=== PATIENT | male | born 1945 | race Caucasian/White ===

== ENCOUNTER 2016-10-01 18:30 | Inpatient (IN) | payer OTHER ==
[~2016-10-01] VITALS: Ht 170.2 cm; Wt 63.5 kg
[~2016-10-01 18:30] MED LIST: ATENPOW10; FENOFIBRATE; GLIPPOW9; LISIPOW; PAROXETINE; [UNRECOGNIZED DRUG - OTHER]
[2016-10-01 19:33] LABS: Albumin 3.1 g/dL (3.4-5.0); BUN/Creatinine Ratio 7.2; Basophils # (auto) 0 uL; Basophils % (auto) 0.2 % (0.0-2.0); Calcium 8.5 mg/dL (8.5-10.1); DEFINITIVE VIEW TRANSMISSION; Eosinophils # (auto) 0.1 uL; Eosinophils % (auto) 0.9 % (0.0-7.0); Hemoglobin 11.8 g/dL (13.5-17.5); Lymphocytes # (auto) 0.9 uL; Lymphocytes % (auto) 9.4 % (10.0-50.0); Mean Corpuscular Hemoglobin 34.2 pg (28.0-32.0); Mean Corpuscular Hgb Conc. 32.9 g/dL (32.0-36.0); Mean Platelet Volume 7.7 fL (7.4-10.4); Monocytes # (auto) 0.2 uL; Monocytes % (auto) 2.4 % (0.0-12.0); Neutrophils # (auto) 8.2 uL; Neutrophils % (auto) 87.1 % (37.0-80.0); Platelet Count (auto) 401 10^3/uL (140-450); Potassium 4.4 mmol/L (3.5-5.1); Red Cell Distribution Width 16.9 % (11.6-16.0); White Blood Cell 9.4 10^3/uL (4.4-10.8)
[2016-10-01 19:38] LABS: Bilirubin, Total 0.2 mg/dL (0.2-1.0); Total Protein 7.6 g/dL (6.4-8.2)
[2016-10-01] MEDS ORDERED: SODIUM CHLORIDE 0.9% 1,000 ML IV ONE (21:30)
[2016-10-01] MEDS ORDERED: ASPirin 81 mg TAB PO ONE (21:30)
[2016-10-02] MEDS ORDERED: ONDANSETRON HCL 4 MG/2 ML VIAL IV PRN (01:00)
[2016-10-02] MEDS ORDERED: NITROGLYCERIN 0.4 MG SL TAB SL PRN (01:00)
[2016-10-02] MEDS ORDERED: HYDROcodone-ACET 5/325MG TAB PO PRN (01:00)
[2016-10-02] MEDS ORDERED: METOPROLOL TARTRATE 50 MG TAB PO ONE (01:00)
[2016-10-02] MEDS ORDERED: MORPHINE SULF INJ 2 MG/ML SYRINGE 1ML IV PRN (01:00)
[2016-10-02] MEDS ORDERED: DEXTROSE (50%) 50ML SYRG IV PRN (01:00)
[2016-10-02] MEDS ORDERED: ACETAMINOPHEN 325 MG TAB PO PRN (01:00)
[2016-10-02] MEDS ORDERED: cloNIDine HCL 0.1 MG TAB PO ONE (02:00)
[2016-10-02 02:25] VITALS: BP 180/100
[2016-10-02 05:00] VITALS: BP 166/99
[2016-10-02] MEDS: InsuLIN REG 1unit/0.01ml Soln (100units/ml) SC SCH ×3 (06:00→18:38)
[2016-10-02] MEDS: ACCU-CHEK COMFORT CURVE STRIP VI SCH ×3 (06:10→18:00)
[2016-10-02 08:00] VITALS: BP 159/96
[2016-10-02 09:00] VITALS: BP 159/96
[2016-10-02] MEDS ORDERED: CLOPIDOGREL BISULFATE 75 MG TAB PO SCH (10:00)
[2016-10-02] MEDS ORDERED: METOPROLOL TARTRATE 50 MG TAB PO SCH (10:00)
[2016-10-02] MEDS ORDERED: ENOXAPARIN SOD 30 MG/0.3 ML SYRINGE SC SCH (10:00)
[2016-10-02] MEDS ORDERED: FAMOTIDINE 20 MG TAB PO SCH ×2 (10:00)
[2016-10-02] MEDS ORDERED: amLODIPine BESYLATE 5 MG TAB PO SCH (10:00)
[2016-10-02] MEDS ORDERED: ISOSORBIDE MONONITRATE 60 MG TAB PO SCH (10:00)
[2016-10-02] MEDS ORDERED: ASPirin 81 mg TAB PO SCH (10:00)
[2016-10-02 13:00] VITALS: BP 156/97
[2016-10-02 14:36] LABS: Basophils # (auto) 0 uL; DEFINITIVE VIEW TRANSMISSION; Eosinophils # (auto) 0 uL; Eosinophils % (auto) 0.3 % (0.0-7.0); Hemoglobin 10.9 g/dL (13.5-17.5)
[2016-10-02 14:46] LABS: Basophils % (auto) 0.3 % (0.0-2.0); Hematocrit 32.5 % (41.0-53.0); Lymphocytes # (auto) 1.3 uL; Lymphocytes % (auto) 13.6 % (10.0-50.0); Mean Corpuscular Hemoglobin 34.3 pg (28.0-32.0); Mean Corpuscular Hgb Conc. 33.4 g/dL (32.0-36.0); Mean Corpuscular Volume 102.8 fL (80.0-100.0); Mean Platelet Volume 7.4 fL (7.4-10.4); Monocytes # (auto) 0.7 uL; Monocytes % (auto) 7.6 % (0.0-12.0); Neutrophils # (auto) 7.5 uL; Neutrophils % (auto) 78.2 % (37.0-80.0); Platelet Count (auto) 403 10^3/uL (140-450); Red Cell Distribution Width 16.7 % (11.6-16.0); White Blood Cell 9.6 10^3/uL (4.4-10.8)
[2016-10-02 15:26] LABS: BUN/Creatinine Ratio 7.8; Calcium 8.5 mg/dL (8.5-10.1); Potassium 3.9 mmol/L (3.5-5.1)
[2016-10-02] MEDS ORDERED: LORazepam 2MG/ML-1ML VIAL IV PRN (17:00)
[2016-10-02 17:12] VITALS: BP 134/84
== END 2016-10-02 22:35 | disposition short-term general hospital (02) | DRG 70 ==
LOC: EDUNIT# 18:30 → EDBD 18:30 → ER 18:32 → TELE 18:33 → TELE-CENTR 10-02 02:23
PROVIDERS: ADMIT Nurse Practitioner; ATTEND Internal Medicine
DX: G93.41 Metabolic encephalopathy (principal); N18.6 End stage renal disease; I12.0 Hypertensive chronic kidney disease with stage 5 chronic kidney disease or end stage renal disease; E87.2 Acidosis; Z99.2 Dependence on renal dialysis; I25.10 Atherosclerotic heart disease of native coronary artery without angina pectoris; E78.5 Hyperlipidemia, unspecified; E11.22 Type 2 diabetes mellitus with diabetic chronic kidney disease; D63.8 Anemia in other chronic diseases classified elsewhere; Z95.1 Presence of aortocoronary bypass graft
CPT/HCPCS: 36415; 70450; 71010; 80048; 80053; 82962; 84484; 85025; 93005; 94761; 96374; J1815; J2405

== ENCOUNTER 2017-11-04 20:04 | Emergency (ER) | payer OTHER ==
[~2017-11-04] VITALS: Ht 162.6 cm; Wt 68.0 kg
[2017-11-04 20:10] VITALS: BP 164/87
[2017-11-04 21:11] LABS: Basophils # (auto) 0.1 uL; Hemoglobin 10.2 g/dL (13.5-17.5); Neutrophils # (auto) 6.1 uL
[2017-11-04 21:12] LABS: Eosinophils # (auto) 0.4 uL; Eosinophils % (auto) 3.9 % (0.0-7.0); Hematocrit 30.9 % (41.0-53.0); Lymphocytes # (auto) 1.6 uL; Lymphocytes % (auto) 17.1 % (10.0-50.0); Mean Corpuscular Hemoglobin 36.6 pg (28.0-32.0); Mean Corpuscular Hgb Conc. 32.9 g/dL (32.0-36.0); Mean Corpuscular Volume 111.2 fL (80.0-100.0); Monocytes % (auto) 10.9 % (0.0-12.0); Neutrophils % (auto) 67.1 % (37.0-80.0); Platelet Count (auto) 366 10^3/uL (140-450); Red Blood Cells 2.78 10^6/uL (4.5-5.90); Red Cell Distribution Width 14.7 % (11.8-14.3); White Blood Cell 9.1 10^3/uL (4.4-10.8)
[2017-11-04 21:13] LABS: Albumin 2.3 g/dL (3.4-5.0); Calcium 8.7 mg/dL (8.5-10.1); Magnesium 2.1 mg/dL (1.6-2.6); Potassium 4.9 mmol/L (3.5-5.1)
[2017-11-04 21:20] LABS: Bilirubin, Total 0.3 mg/dL (0.2-1.0); Total Protein 6.3 g/dL (6.4-8.2)
== END 2017-11-04 21:27 | disposition left against medical advice (07) ==
LOC: ER 20:04 → EDBD 20:04 → ER 21:27
DX: R07.89 Other chest pain (principal); R06.02 Shortness of breath; Z53.21 Procedure and treatment not carried out due to patient leaving prior to being seen by health care provider
CPT/HCPCS: 36415; 71045; 80053; 83735; 83880; 84484; 85025